=== PATIENT | male | born 1935 | race Caucasian/White ===

== ENCOUNTER 2021-01-03 17:34 | Inpatient (IN) ==
[2021-01-03] MEDS ORDERED: 0.9 % Sodium Chloride 1,000 ML IVC ONE ×2 (18:39→23:50)
[2021-01-03 21:50] LABS: Alanine Aminotransferase 43 Units/L (7-52); Albumin 3.5 g/dL (3.5-5.7); Albumin/Globulin Ratio 1.5 (1.1-2.2); Alkaline Phosphatase 53 Units/L (34-104); Aspartate Amino Transferase 136 Units/L (13-39); BUN/Creatinine Ratio 30 (6-26); Bilirubin,Direct 0.4 mg/dL (0.0-0.2); Bilirubin,Indirect 1.9 mg/dL (0.0-1.0); Bilirubin,Total 2.3 mg/dL (0.3-1.0); Blood Urea Nitrogen 36 mg/dL (8-23); Calcium 8.9 mg/dL (8.6-10.3); Carbon Dioxide 28 mEq/L (23-29); Chloride 107 mEq/L (98-107); Globulin 2.3 g/dL (2.4-3.5); Glucose 150 mg/dL (70-105); Osmolality,Calculated 303 (280-300); Potassium 4.2 mEq/L (3.5-5.1); Sodium 141 mEq/L (136-145); Total Protein 5.8 g/dL (6.4-8.9); eGFR For African Americans > 60 (> 60); eGFR For Non-African Americans 56 (> 60)
[2021-01-03 22:11] LABS: Creatine Kinase 4946 Units/L (30-223)
[2021-01-03] MEDS ORDERED: 0.9 % Sodium Chloride 500 ML IVC ONE (22:21)
[2021-01-04] MEDS ORDERED: Isovue-370 500 ML BOTTLE IVP ONE (01:23)
[2021-01-04 02:22] LABS: Nucleated Red Blood Cells 1.5 /100 WBC (0)
[2021-01-04 02:25] LABS: Basophils % 0.1 %; Immature Granulocytes % 0.4 % (0-4); Lymphocytes # 0.8 K/mcL (0.6-4.6); Lymphocytes % 4.6 %; Mean Platelet Volume 11.4 fL (9.4-12.4); Monocytes # 1.9 K/mcL (0.0-1.3); Monocytes % 10.5 %; Neutrophils # 15.4 K/mcL (1.6-8.9); Platelet Count 356 K/mcL (140-400); Segmented Neutrophils % 84.4 %; White Blood Count 18.2 K/mcL (4.3-11.1)
[2021-01-04 02:26] LABS: Red Blood Count 3.83 M/mcL (4.19-5.50)
[2021-01-04 02:27] LABS: Hematocrit 38.3 % (37.5-50.1); Hemoglobin 11.1 g/dL (12.9-16.9)
[2021-01-04 02:28] LABS: Red Cell Distribution Width 19.2 % (11.5-14.5)
[2021-01-04] MEDS ORDERED: Piperacillin/Tazobactam 3.375 GM in 0.9 % Sodium Chloride Mini Bag 100 ML IVPB STA (02:34)
[2021-01-04] MEDS ORDERED: Vancomycin 1,250 MG/262.5 ML IV.SOLN IVPB ONE (03:30)
[2021-01-04] MEDS ORDERED: D5% in Lactated Ringers 1,000 ML IVC SCH (04:00)
[2021-01-04] MEDS ORDERED: Melatonin 3 MG TABLET PO PRN (04:45)
[2021-01-04] MEDS ORDERED: Naloxone 0.4 MG/ML INJ IVP PRN (04:45)
[2021-01-04] MEDS ORDERED: Ondansetron 4 MG/2 ML VIAL IVP PRN (04:45)
[2021-01-04] MEDS: 0.9 % Sodium Chloride 1,000 ML IVC SCH ×2 (05:24→13:52)
[2021-01-04 05:27] LABS: Bacteria,Urine Few per hpf (None-Few); Bilirubin,Urine Negative (Negative); Blood,Urine Large (Negative); Clarity,Urine Clear (Clear); Color,Urine Colorless (Yellow); Glucose,Urine (UA) Normal (Normal); Ketones,Urine 10 mg/dL (Negative); Leukocyte Esterase,Urine Negative (Negative); Mucus,Urine Few per lpf (None-Few); Nitrite,Urine Negative (Negative); Protein,Urine 70 mg/dL (Neg-Trace); RBC,Urine 0-3 per hpf (0-3); Specific Gravity,Urine > 1.030 (1.010-1.025); Urobilinogen,Urine Normal (Normal); WBC,Urine 0-3 per hpf (0-3)
[2021-01-04 07:31] LABS: Alanine Aminotransferase 54 Units/L (7-52); Albumin 3.7 g/dL (3.5-5.7); Albumin/Globulin Ratio 1.6 (1.1-2.2); Alkaline Phosphatase 54 Units/L (34-104); Aspartate Amino Transferase 158 Units/L (13-39); BUN/Creatinine Ratio 31 (6-26); Bilirubin,Total 2.2 mg/dL (0.3-1.0); Blood Urea Nitrogen 33 mg/dL (8-23); Calcium 8.6 mg/dL (8.6-10.3); Carbon Dioxide 27 mEq/L (23-29); Chloride 108 mEq/L (98-107); Creatine Kinase 4578 Units/L (30-223); Globulin 2.3 g/dL (2.4-3.5); Glucose 119 mg/dL (70-105); Magnesium 2.1 mg/dL (1.6-2.6); Osmolality,Calculated 300 (280-300); Potassium 4.9 mEq/L (3.5-5.1); Sodium 141 mEq/L (136-145); eGFR For African Americans > 60 (> 60); eGFR For Non-African Americans > 60 (> 60)
[2021-01-04] MEDS: Azithromycin 500 MG in D5% in Water 250 ML IVPB SCH (10:56)
[2021-01-04] MEDS: cefTRIAXone 1,000 MG in Water for inj. (sterile) 10 ML IVP SCH (10:56)
[2021-01-04] MEDS: polyethylene glycoL 3350 17 GM POWD.PACK PO PRN (13:52)
[2021-01-04] MEDS ORDERED: *HR* OxyCODONE Immed Rel 5 MG TABLET PO PRN (15:53)
[2021-01-04] MEDS: *HR* Heparin 5,000 UNIT/ML VIAL SQ SCH (18:06)
[2021-01-04] MEDS: Azelastine 0.1% Nasal Spray 30 ML BOTTLE NS SCH (21:54)
[2021-01-05] MEDS: ALPRAZolam 0.25 MG TABLET PO PRN (01:07)
[2021-01-05] MEDS: Aspirin 81 MG TAB.CHEW PO SCH ×2 (01:09→20:17)
[2021-01-05 02:52] LABS: Mean Platelet Volume 11.3 fL (9.4-12.4); Platelet Count 227 K/mcL (140-400); White Blood Count 13.7 K/mcL (4.3-11.1)
[2021-01-05 03:32] LABS: Hematocrit 30.8 % (37.5-50.1); Mean Corpuscular Hemoglobin 32.3 pg (28.0-33.3); Mean Corpuscular Volume 99.4 fL (83.0-100.0)
[2021-01-05 03:33] LABS: Mean Corpuscular HGB Conc 32.5 g/dL (31.6-35.5)
[2021-01-05] MEDS: *HR* Heparin 5,000 UNIT/ML VIAL SQ SCH ×2 (06:16→17:14)
[2021-01-05] MEDS ORDERED: Aspirin Enteric Coated 81 MG Tablet PO SCH (09:00)
[2021-01-05 09:08] LABS: Alanine Aminotransferase 54 Units/L (7-52); Albumin 3.2 g/dL (3.5-5.7); Albumin/Globulin Ratio 1.5 (1.1-2.2); Alkaline Phosphatase 46 Units/L (34-104); Aspartate Amino Transferase 94 Units/L (13-39); BUN/Creatinine Ratio 32 (6-26); Bilirubin,Total 1.1 mg/dL (0.3-1.0); Blood Urea Nitrogen 31 mg/dL (8-23); Calcium 8.4 mg/dL (8.6-10.3); Carbon Dioxide 28 mEq/L (23-29); Chloride 109 mEq/L (98-107); Creatine Kinase 993 Units/L (30-223); Globulin 2.2 g/dL (2.4-3.5); Glucose 107 mg/dL (70-105); Osmolality,Calculated 297 (280-300); Sodium 140 mEq/L (136-145); Total Protein 5.4 g/dL (6.4-8.9); eGFR For African Americans > 60 (> 60); eGFR For Non-African Americans > 60 (> 60)
[2021-01-05] MEDS: Finasteride 5 MG TABLET PO SCH (09:49)
[2021-01-05] MEDS: Azithromycin 500 MG in D5% in Water 250 ML IVPB SCH (09:49)
[2021-01-05] MEDS: hydroCHLOROthiazide 25 MG TABLET PO SCH (09:49)
[2021-01-05] MEDS: Azelastine 0.1% Nasal Spray 30 ML BOTTLE NS SCH ×2 (09:50→20:18)
[2021-01-05] MEDS: Fluticasone Propionate Nasal 50 MCG/SPRAY BOTTLE NS SCH (09:51)
[2021-01-05] MEDS: cefTRIAXone 1,000 MG in Water for inj. (sterile) 10 ML IVP SCH (09:51)
[2021-01-05 17:24] LABS: Folate 16.8 ng/mL (3.0-16.0)
[2021-01-05] MEDS: polyethylene glycoL 3350 17 GM POWD.PACK PO PRN (20:34)
[2021-01-06] MEDS: *HR* Heparin 5,000 UNIT/ML VIAL SQ SCH ×2 (06:04→18:28)
[2021-01-06 07:24] LABS: BUN/Creatinine Ratio 29 (6-26); Blood Urea Nitrogen 28 mg/dL (8-23); Calcium 8.5 mg/dL (8.6-10.3); Carbon Dioxide 31 mEq/L (23-29); Chloride 106 mEq/L (98-107); Creatine Kinase 500 Units/L (30-223); Glucose 115 mg/dL (70-105); Osmolality,Calculated 296 (280-300); Potassium 4.9 mEq/L (3.5-5.1); Sodium 140 mEq/L (136-145); eGFR For African Americans > 60 (> 60); eGFR For Non-African Americans > 60 (> 60)
[2021-01-06 08:04] LABS: Basophils % 0.4 %; Eosinophils % 0.5 %
[2021-01-06 08:06] LABS: Immature Granulocytes % 0.4 % (0-4); Lymphocytes # 1.1 K/mcL (0.6-4.6); Mean Platelet Volume 10.8 fL (9.4-12.4); Monocytes # 1.1 K/mcL (0.0-1.3); Monocytes % 12.7 %; Neutrophils # 6.1 K/mcL (1.6-8.9); Platelet Count 223 K/mcL (140-400); White Blood Count 8.4 K/mcL (4.3-11.1)
[2021-01-06 09:00] LABS: Hematocrit 31.8 % (37.5-50.1); Hemoglobin 10.6 g/dL (12.9-16.9); Mean Corpuscular Volume 99.1 fL (83.0-100.0)
[2021-01-06 09:01] LABS: Mean Corpuscular HGB Conc 33.3 g/dL (31.6-35.5)
[2021-01-06] MEDS: hydroCHLOROthiazide 25 MG TABLET PO SCH (09:03)
[2021-01-06] MEDS: cefTRIAXone 1,000 MG in Water for inj. (sterile) 10 ML IVP SCH (09:04)
[2021-01-06] MEDS: Finasteride 5 MG TABLET PO SCH (09:07)
[2021-01-06] MEDS: Azithromycin 500 MG in D5% in Water 250 ML IVPB SCH (09:08)
[2021-01-06] MEDS: Azelastine 0.1% Nasal Spray 30 ML BOTTLE NS SCH ×2 (09:14→21:21)
[2021-01-06] MEDS: Fluticasone Propionate Nasal 50 MCG/SPRAY BOTTLE NS SCH (09:14)
[2021-01-06] MEDS ORDERED: Ondansetron ODT 4 MG TAB.RAPDIS SL PRN (14:53)
[2021-01-06] MEDS: Aspirin 81 MG TAB.CHEW PO SCH (21:19)
[2021-01-07] MEDS: *HR* Heparin 5,000 UNIT/ML VIAL SQ SCH ×2 (06:17→17:53)
[2021-01-07 07:58] LABS: Basophils % 0.4 %; Eosinophils # 0.2 K/mcL (0.0-0.6); Eosinophils % 1.9 %; Immature Granulocytes % 0.5 % (0-4); Lymphocytes # 1.5 K/mcL (0.6-4.6); Mean Platelet Volume 12.5 fL (9.4-12.4); Monocytes # 1.1 K/mcL (0.0-1.3); Monocytes % 13.9 %; Platelet Count 211 K/mcL (140-400); Segmented Neutrophils % 64.3 %; White Blood Count 7.8 K/mcL (4.3-11.1)
[2021-01-07 08:03] LABS: Hematocrit 31.4 % (37.5-50.1); Hemoglobin 9.7 g/dL (12.9-16.9); Red Blood Count 3.03 M/mcL (4.19-5.50)
[2021-01-07 08:04] LABS: Mean Corpuscular Volume 103.6 fL (83.0-100.0)
[2021-01-07 08:05] LABS: Mean Corpuscular HGB Conc 30.9 g/dL (31.6-35.5)
[2021-01-07] MEDS: hydroCHLOROthiazide 25 MG TABLET PO SCH (09:43)
[2021-01-07] MEDS: Fluticasone Propionate Nasal 50 MCG/SPRAY BOTTLE NS SCH (09:43)
[2021-01-07] MEDS: Finasteride 5 MG TABLET PO SCH (09:44)
[2021-01-07] MEDS: cefTRIAXone 1,000 MG in Water for inj. (sterile) 10 ML IVP SCH (09:44)
[2021-01-07] MEDS: Azithromycin 250 MG TABLET PO SCH (09:44)
[2021-01-07] MEDS: Azelastine 0.1% Nasal Spray 30 ML BOTTLE NS SCH ×2 (09:49→20:17)
[2021-01-07 11:24] LABS: BUN/Creatinine Ratio 20 (6-26); Blood Urea Nitrogen 21 mg/dL (8-23); Carbon Dioxide 32 mEq/L (23-29); Chloride 100 mEq/L (98-107); Glucose 110 mg/dL (70-105); Osmolality,Calculated 286 (280-300); Potassium 5.5 mEq/L (3.5-5.1); Sodium 136 mEq/L (136-145); eGFR For African Americans > 60 (> 60); eGFR For Non-African Americans > 60 (> 60)
[2021-01-07] MEDS ORDERED: Perflutren Lipid Microsphere 1.3 ML in 0.9 % Sodium Chloride 8.7 ML IVP PRN (13:25)
[2021-01-07] MEDS ORDERED: *HR* Metoprolol 5 MG/5 ML VIAL IVP ONE (19:41)
[2021-01-07] MEDS: Aspirin 81 MG TAB.CHEW PO SCH (20:17)
[2021-01-08 03:52] LABS: Alanine Aminotransferase 53 Units/L (7-52); Albumin 3.4 g/dL (3.5-5.7); Albumin/Globulin Ratio 1.6 (1.1-2.2); Alkaline Phosphatase 52 Units/L (34-104); Aspartate Amino Transferase 41 Units/L (13-39); BUN/Creatinine Ratio 21 (6-26); Bilirubin,Total 0.9 mg/dL (0.3-1.0); Blood Urea Nitrogen 20 mg/dL (8-23); Carbon Dioxide 34 mEq/L (23-29); Chloride 99 mEq/L (98-107); Globulin 2.1 g/dL (2.4-3.5); Glucose 112 mg/dL (70-105); Osmolality,Calculated 287 (280-300); Potassium 4.3 mEq/L (3.5-5.1); Sodium 137 mEq/L (136-145); Total Protein 5.5 g/dL (6.4-8.9); eGFR For African Americans > 60 (> 60); eGFR For Non-African Americans > 60 (> 60)
[2021-01-08] MEDS: *HR* Heparin 5,000 UNIT/ML VIAL SQ SCH ×2 (05:05→16:21)
[2021-01-08 05:33] LABS: Immature Platelets 2.3 % (1.1-6.1); Mean Platelet Volume 10.9 fL (9.4-12.4); Red Cell Distribution Width 14.1 % (11.5-14.5)
[2021-01-08 05:38] LABS: White Blood Count 7.1 K/mcL (4.3-11.1)
[2021-01-08 05:40] LABS: Hematocrit 31.8 % (37.5-50.1); Hemoglobin 11.3 g/dL (12.9-16.9); Red Blood Count 3.35 M/mcL (4.19-5.50)
[2021-01-08 05:41] LABS: Mean Corpuscular HGB Conc 35.5 g/dL (31.6-35.5); Mean Corpuscular Hemoglobin 33.7 pg (28.0-33.3); Mean Corpuscular Volume 94.9 fL (83.0-100.0)
[2021-01-08] MEDS: Azelastine 0.1% Nasal Spray 30 ML BOTTLE NS SCH ×2 (08:40→20:35)
[2021-01-08] MEDS: Fluticasone Propionate Nasal 50 MCG/SPRAY BOTTLE NS SCH (08:40)
[2021-01-08] MEDS: hydroCHLOROthiazide 25 MG TABLET PO SCH (08:41)
[2021-01-08] MEDS: Finasteride 5 MG TABLET PO SCH (08:42)
[2021-01-08] MEDS: Azithromycin 250 MG TABLET PO SCH (08:42)
[2021-01-08] MEDS: cefTRIAXone 1,000 MG in Water for inj. (sterile) 10 ML IVP SCH (08:45)
[2021-01-08] MEDS: Aspirin 81 MG TAB.CHEW PO SCH (20:34)
[2021-01-09 04:23] LABS: Mean Platelet Volume 10.7 fL (9.4-12.4); Platelet Count 271 K/mcL (140-400); Red Cell Distribution Width 15.6 % (11.5-14.5); White Blood Count 6.3 K/mcL (4.3-11.1)
[2021-01-09 04:25] LABS: Hematocrit 32.4 % (37.5-50.1); Hemoglobin 11.5 g/dL (12.9-16.9); Red Blood Count 3.44 M/mcL (4.19-5.50)
[2021-01-09 04:26] LABS: Mean Corpuscular HGB Conc 35.5 g/dL (31.6-35.5); Mean Corpuscular Hemoglobin 33.4 pg (28.0-33.3); Mean Corpuscular Volume 94.2 fL (83.0-100.0)
[2021-01-09] MEDS: *HR* Heparin 5,000 UNIT/ML VIAL SQ SCH ×2 (05:21→18:26)
[2021-01-09] MEDS: Azelastine 0.1% Nasal Spray 30 ML BOTTLE NS SCH ×2 (08:41→20:24)
[2021-01-09] MEDS: Finasteride 5 MG TABLET PO SCH (08:42)
[2021-01-09] MEDS: hydroCHLOROthiazide 25 MG TABLET PO SCH (08:42)
[2021-01-09] MEDS: Fluticasone Propionate Nasal 50 MCG/SPRAY BOTTLE NS SCH (08:44)
[2021-01-09 13:36] LABS: BUN/Creatinine Ratio 31 (6-26); Blood Urea Nitrogen 32 mg/dL (8-23); Calcium 9.5 mg/dL (8.6-10.3); Carbon Dioxide 34 mEq/L (23-29); Chloride 94 mEq/L (98-107); Glucose 165 mg/dL (70-105); Osmolality,Calculated 289 (280-300); Potassium 4.8 mEq/L (3.5-5.1); Sodium 134 mEq/L (136-145); eGFR For African Americans > 60 (> 60); eGFR For Non-African Americans > 60 (> 60)
[2021-01-09] MEDS: Aspirin 81 MG TAB.CHEW PO SCH (20:24)
[2021-01-10 04:23] LABS: Immature Platelets 5.1 % (1.1-6.1); Platelet Count 278 K/mcL (140-400); White Blood Count 7.5 K/mcL (4.3-11.1)
[2021-01-10 04:24] LABS: Red Blood Count 3.33 M/mcL (4.19-5.50)
[2021-01-10 04:25] LABS: Hematocrit 32.9 % (37.5-50.1); Hemoglobin 11.2 g/dL (12.9-16.9); Mean Corpuscular Volume 98.8 fL (83.0-100.0)
[2021-01-10 04:26] LABS: Mean Corpuscular Hemoglobin 33.6 pg (28.0-33.3)
[2021-01-10] MEDS: *HR* Heparin 5,000 UNIT/ML VIAL SQ SCH ×2 (06:10→17:07)
[2021-01-10 06:37] LABS: BUN/Creatinine Ratio 34 (6-26); Blood Urea Nitrogen 34 mg/dL (8-23); Calcium 9.4 mg/dL (8.6-10.3); Carbon Dioxide 33 mEq/L (23-29); Chloride 98 mEq/L (98-107); Glucose 106 mg/dL (70-105); Osmolality,Calculated 288 (280-300); Potassium 5.2 mEq/L (3.5-5.1); Sodium 135 mEq/L (136-145); eGFR For African Americans > 60 (> 60); eGFR For Non-African Americans > 60 (> 60)
[2021-01-10] MEDS: Azelastine 0.1% Nasal Spray 30 ML BOTTLE NS SCH ×2 (09:54→20:54)
[2021-01-10] MEDS: Finasteride 5 MG TABLET PO SCH (09:55)
[2021-01-10] MEDS: Fluticasone Propionate Nasal 50 MCG/SPRAY BOTTLE NS SCH (09:55)
[2021-01-10] MEDS: hydroCHLOROthiazide 25 MG TABLET PO SCH (09:55)
[2021-01-10] MEDS: ALPRAZolam 0.25 MG TABLET PO PRN ×2 (09:59→20:56)
[2021-01-10] MEDS: Aspirin 81 MG TAB.CHEW PO SCH (20:53)
[2021-01-11] MEDS: *HR* Heparin 5,000 UNIT/ML VIAL SQ SCH ×2 (05:49→17:22)
[2021-01-11 06:28] LABS: Hematocrit 29.5 % (37.5-50.1); Mean Corpuscular HGB Conc 33.6 g/dL (31.6-35.5); Mean Corpuscular Hemoglobin 33.4 pg (28.0-33.3); Platelet Count 245 K/mcL (140-400); Red Blood Count 2.96 M/mcL (4.19-5.50); Red Cell Distribution Width 15.8 % (11.5-14.5); White Blood Count 7.2 K/mcL (4.3-11.1)
[2021-01-11 06:29] LABS: Hemoglobin 9.9 g/dL (12.9-16.9); Mean Corpuscular Volume 99.7 fL (83.0-100.0)
[2021-01-11] MEDS: Azelastine 0.1% Nasal Spray 30 ML BOTTLE NS SCH ×2 (10:01→20:01)
[2021-01-11] MEDS: Finasteride 5 MG TABLET PO SCH (10:01)
[2021-01-11] MEDS: hydroCHLOROthiazide 25 MG TABLET PO SCH (10:02)
[2021-01-11] MEDS: Fluticasone Propionate Nasal 50 MCG/SPRAY BOTTLE NS SCH (10:02)
[2021-01-11] MEDS: ALPRAZolam 0.25 MG TABLET PO PRN ×2 (10:03→22:08)
[2021-01-11 19:55] VITALS: BP 104/60; PULSE 88; TEMP 98.6; O2SAT 93
[2021-01-11] MEDS: Aspirin 81 MG TAB.CHEW PO SCH (20:00)
== END 2021-01-11 23:20 | disposition short-term general hospital (02) | DRG 564 ==
LOC: CDU 17:34 → EMEROOARM 17:34 → CDU 01-04 04:10 → SUATTDRO 01-04 15:50 → 3ANU 01-05 06:39
PROVIDERS: ADMIT Internal Medicine; ATTEND Internal Medicine